=== PATIENT | male | born 1985 | race Caucasian/White ===

== ENCOUNTER 2021-11-24 19:32 | Emergency (ER) | payer MEDICAID ==
[~2021-11-24] VITALS: Ht 190.5 cm; Wt 107.0 kg
[~2021-11-24 19:32] MED LIST: IBUP-2030 PO
[2021-11-24 19:51] VITALS: BP 116/77
[2021-11-24] MEDS ORDERED: IMIQ1CRE TP (21:14)
== END 2021-11-24 21:55 | disposition home or self-care (01) ==
LOC: ER 19:32
DX: A63.0 Anogenital (venereal) warts (principal)
CPT/HCPCS: 99281